=== PATIENT | male | born 1945 | race Caucasian/White ===

== ENCOUNTER → 2017-07-03 | Outpatient (CLI) | payer OTHER, MEDICARE | LOC: FIMAGING 13:47 | PROVIDERS: ATTEND Internal Medicine Cardiovascular Disease | DX: Z45.018 Encounter for adjustment and management of other part of cardiac pacemaker (principal) ==

== ENCOUNTER 2017-11-28 15:28 | Emergency (ER) | payer OTHER, MEDICARE ==
--- NOTE | 2017-11-28 15:44 | CPEKG ---
Heart Rate: 64 RR Interval: 938 P-R Interval: 180 QRSD Interval: 122 QT Interval: 384 QTC Interval: 396 P Mccool: 35 QRS Mccool: 9 T Wave Mccool: 2 EKG Severity - ABNORMAL ECG - EKG Impression: SINUS RHYTHM EKG Impression: RIGHT BUNDLE BRANCH BLOCK Electronically Signed By: Destinee Dominique 28-Nov-2017 20:45:04
[2017-11-28 16:47] LABS: PLATELET COUNT 228 10^3/uL (150-400)
--- NOTE | 2017-11-28 16:48 | EDPHY ---
H & P Stated Complaint: cp Time Seen by Provider: 11/28/17 16:16 HPI/ROS: CHIEF COMPLAINT: Chest pain HISTORY OF PRESENT ILLNESS: 72-year-old male with CAD presents with a one-week history of chest pain. The chest pain has been constant, quite mild and left- sided. He notices the chest pain when he is at rest, but not so much when he is active. The pain does not wake him up from sleep. No associated symptoms and no alleviating or aggravating factors. This pain is not like his prior cardiac symptoms. No recent cough or fever. REVIEW OF SYSTEMS: complete 10 point ROS negative except at noted in the HPI - Personal History Current Tetanus/Diphtheria Vaccine: Yes Current Tetanus Diphtheria and Acellular Pertussis (TDAP): Yes - Medical/Surgical History Hx Asthma: No Hx Chronic Respiratory Disease: No Hx Cardiac Disease: Yes Hx Renal Disease: No Hx Cirrhosis: No Hx Alcoholism: No Hx HIV/AIDS: No Hx Splenectomy or Spleen Trauma: No Other PMH: PPM, HTN, BPH, cardiac stents - Social History Smoking Status: Never smoked - Physical Exam Exam: General Appearance: Alert, pleasant Eyes: Pupils equal and round, no conjunctival pallor ENT, Mouth: Mucous membranes moist Neck: Normal inspection Respiratory: Lungs are clear to auscultation Cardiovascular: Regular rate and rhythm, no murmur Gastrointestinal: Abdomen is soft and nontender Neurological: A&O, nonfocal, normal gait Skin: Warm and dry Extremities: Nontender, no pedal edema Psychiatric: Mood and affect normal Constitutional: Initial Vital Signs Temperature (C) 36.6 C 11/28/17 15:35 Heart Rate 56 L 11/28/17 15:35 Respiratory Rate 56 H 11/28/17 15:35 Blood Pressure 154/76 H 11/28/17 15:35 O2 Sat (%) 95 11/28/17 15:35 O2 Delivery Mode Room Air Allergies/Adverse Reactions: simvastatin [From Zocor] Allergy (Intermediate, Verified 01/12/11 17:31) MUSCLE STIFFNESS rosuvastatin [From Crestor] Allergy (Verified 11/28/17 15:32) Home Medications: Medication Instructions Recorded Carvedilol 11/28/17 Finasteride 11/28/17 Livalo 11/28/17 Losartan Potassium 11/28/17 Medical Decision Making - Diagnostics EKG Interpretation: EKG interpreted by me reveals normal sinus rhythm, rate 64, a right bundle branch block. Imaging Results: Imaging Impressions Chest X-Ray 11/28/17 16:15 Impression: Stable chest.. Imaging: I viewed and interpreted images myself ED Course/Re-evaluation: This patient presents with atypical chest pain. Chest pain has been quite prolonged, being constant for over a week. Stat EKG reveals no evidence of ischemia or dysrhythmia. Clinical presentation does not suggest acute coronary syndrome. Initial troponin 0. Chest x-ray is unremarkable. There is no evidence of pneumonia or pneumothorax. No evidence of PE, PERC score 1 for age , ddimer negative. I feel I can safely exclude PE as dx. I do not feels that a repeat troponin is indicated. Safe/stable for d/c. f/u cards. Differential Diagnosis: Differential diagnosis includes though it is not limited to pneumonia, pneumothorax, pulmonary embolism, aortic dissection, pericarditis, acute coronary syndrome. - Data Points Laboratory Results: Laboratory Results 11/28/17 16:27 11/28/17 16:27 11/28/17 11/28/17 11/28/17 16:32 16:27 16:27 WBC RBC Hgb Hct MCV MCH MCHC RDW Plt Count MPV Neut % (Auto) Lymph % (Auto) Lares % (Auto) Eos % (Auto) Baso % (Auto) Nucleat RBC Rel Count Absolute Neuts (auto) Absolute Lymphs (auto) Absolute Monos (auto) Absolute Eos (auto) Absolute Basos (auto) Absolute Nucleated RBC Immature Gran % Immature Gran # D-Dimer < 0.27 ug/mLFEU ug/mLFEU (0.00-0.50) Sodium 138 mEq/L mEq/L (135-145) Potassium 4.8 mEq/L mEq/L (3.3-5.0) Chloride 107 mEq/L mEq/L (97-110) Carbon Dioxide 19 mEq/l L mEq/l (22-31) Anion Gap 12 mEq/L mEq/L (8-16) BUN 18 mg/dL mg/dL (7-23) Creatinine 0.9 mg/dL mg/dL (0.7-1.3) Estimated GFR > 60 Glucose 107 mg/dL H mg/dL (70-100) Calcium 10.0 mg/dL mg/dL (8.5-10.4) POC Troponin I 0.00 ng/mL ng/mL (0.00-0.08) NT-Pro-B Natriuret Pep 17 pg/mL pg/mL (0-125) 11/28/17 16:27 WBC 9.58 10^3/uL H 10^3/uL (3.80-9.50) RBC 5.33 10^6/uL 10^6/uL (4.40-6.38) Hgb 17.4 g/dL g/dL (13.7-17.5) Hct 48.8 % % (40.0-51.0) MCV 91.6 fL fL (81.5-99.8) MCH 32.6 pg pg (27.9-34.1) MCHC 35.7 g/dL g/dL (32.4-36.7) RDW 13.2 % % (11.5-15.2) Plt Count 228 10^3/uL 10^3/uL (150-400) MPV 10.8 fL fL (8.7-11.7) Neut % (Auto) 63.6 % % (39.3-74.2) Lymph % (Auto) 22.3 % % (15.0-45.0) Lares % (Auto) 10.2 % % (4.5-13.0) Eos % (Auto) 2.5 % % (0.6-7.6) Baso % (Auto) 0.8 % % (0.3-1.7) Nucleat RBC Rel Count 0.0 % % (0.0-0.2) Absolute Neuts (auto) 6.08 10^3/uL 10^3/uL (1.70-6.50) Absolute Lymphs (auto) 2.14 10^3/uL 10^3/uL (1.00-3.00) Absolute Monos (auto) 0.98 10^3/uL H 10^3/uL (0.30-0.80) Absolute Eos (auto) 0.24 10^3/uL 10^3/uL (0.03-0.40) Absolute Basos (auto) 0.08 10^3/uL 10^3/uL (0.02-0.10) Absolute Nucleated RBC 0.00 10^3/uL 10^3/uL (0-0.01) Immature Gran % 0.6 % % (0.0-1.1) Immature Gran # 0.06 10^3/uL 10^3/uL (0.00-0.10) D-Dimer Sodium Potassium Chloride Carbon Dioxide Anion Gap BUN Creatinine Estimated GFR Glucose Calcium POC Troponin I NT-Pro-B Natriuret Pep Point of Care Test Results: Chemistry 11/28/17 16:32 POC Troponin I 0.00 ng/mL ng/mL (0.00-0.08) Departure - Departure Disposition: Home, Routine, Self-Care Clinical Impression: Chest pain Qualifiers: Chest pain type: other chest pain Qualified Code(s): R07.89 - Other chest pain Condition: Good Instructions: Chest Pain (ED) Additional Instructions: Return for worsening symptoms or any concerns. Referrals: Hansa Griffith MD [Primary Care Provider] - As per Instructions Elmo Monroe MD [Medical Doctor] - As per Instructions (Call to make an appointment.)
[2017-11-28 17:58] VITALS: BP 144/98
== END 2017-11-28 17:57 | disposition home or self-care (01) ==
DX: R07.89 Other chest pain (principal); I10 Essential (primary) hypertension
CPT/HCPCS: 84484-PO

== ENCOUNTER → 2018-06-05 | Outpatient (CLI) | payer OTHER, MEDICARE ==
[~2018-06-05] MED LIST: IOHEXOL 350mgI/ML (OMNIPAQUE) 150 ML BTL IV ONE
== END ==
LOC: FIMAGING 08:34
PROVIDERS: ATTEND Urology
PROC: CP1Z1ZZ Planar Nuclear Medicine Imaging of Musculoskeletal System, All using Technetium 99m (Tc-99m) (ICD-10-PCS; principal; 2018-06-05)
DX: M89.8X8 Other specified disorders of bone, other site (principal); C61 Malignant neoplasm of prostate; R91.1 Solitary pulmonary nodule; I70.0 Atherosclerosis of aorta; K44.9 Diaphragmatic hernia without obstruction or gangrene; K57.30 Diverticulosis of large intestine without perforation or abscess without bleeding; Z90.49 Acquired absence of other specified parts of digestive tract
CPT/HCPCS: 74177; 78306; A9503; Q9967; 82565-PO

== ENCOUNTER → 2018-06-20 | Outpatient (CLI) | payer OTHER, MEDICARE | LOC: BMCIMAGING 13:46 | PROVIDERS: ATTEND Internal Medicine | DX: M79.642 Pain in left hand (principal) ==